=== PATIENT | male | born 1985 | race Caucasian/White ===

== ENCOUNTER 2017-04-13 06:04 | Emergency (ER) | payer SELFPAY ==
[~2017-04-13] VITALS: Ht 182.9 cm; Wt 91.9 kg
[2017-04-13] MEDS ORDERED: L.E.T SOLUTION TP ONE ×2 (06:58→07:00)
[2017-04-13] MEDS ORDERED: OXYcodone/APAP 5/325MG TABLET ONE (06:59)
[2017-04-13] MEDS ORDERED: OXYcodone/APAP 5/325MG TABLET PO ONE (07:00)
[2017-04-13 08:28] VITALS: BP 128/82
== END 2017-04-13 08:30 | disposition home or self-care (01) ==
LOC: ED 07:44
DX: S51.002A Unspecified open wound of left elbow, initial encounter (principal); S54.02XA Injury of ulnar nerve at forearm level, left arm, initial encounter; S50.812A Abrasion of left forearm, initial encounter; S40.022A Contusion of left upper arm, initial encounter; F12.10 Cannabis abuse, uncomplicated; V00.131A Fall from skateboard, initial encounter; Y93.51 Activity, roller skating (inline) and skateboarding; Y92.410 Unspecified street and highway as the place of occurrence of the external cause; Y99.8 Other external cause status

== ENCOUNTER 2017-05-08 19:49 | Emergency (ER) | payer SELFPAY ==
[~2017-05-08] VITALS: Ht 182.9 cm; Wt 89.0 kg
[2017-05-08 19:50] VITALS: BP 137/84
[2017-05-08] MEDS ORDERED: KETOROLAC 30 MG/1 ML ONE (20:29)
[2017-05-08] MEDS ORDERED: KETOROLAC 30 MG/1 ML IM ONE (20:30)
== END 2017-05-08 21:25 | disposition home or self-care (01) ==
LOC: ED 21:19
DX: S93.491A Sprain of other ligament of right ankle, initial encounter (principal); M25.471 Effusion, right ankle; M25.572 Pain in left ankle and joints of left foot; W18.39XA Other fall on same level, initial encounter; Y93.89 Activity, other specified; Y99.8 Other external cause status; Y92.830 Public park as the place of occurrence of the external cause
CPT/HCPCS: 73610; 96372; 99284; J1885

== ENCOUNTER 2017-10-02 15:54 | Emergency (ER) | payer SELFPAY ==
[~2017-10-02] VITALS: Ht 182.9 cm; Wt 99.2 kg
[2017-10-02 15:56] VITALS: BP 159/92
== END 2017-10-02 17:04 | disposition home or self-care (01) ==
LOC: ED 16:20
DX: K02.9 Dental caries, unspecified (principal)
CPT/HCPCS: 99283

== ENCOUNTER 2018-07-25 03:00 | Emergency (ER) | payer SELFPAY ==
[~2018-07-25] VITALS: Ht 182.9 cm; Wt 93.8 kg
[2018-07-25 03:02] VITALS: BP 130/88
[2018-07-25] MEDS ORDERED: METHOCARBAMOL 750 MG TABLET ONE (03:19)
[2018-07-25] MEDS ORDERED: KETOROLAC 30 MG/1 ML ONE (03:19)
[2018-07-25] MEDS ORDERED: METHOCARBAMOL 750 MG TABLET PO ONE (03:30)
[2018-07-25] MEDS ORDERED: KETOROLAC 30 MG/1 ML IM ONE (03:30)
== END 2018-07-25 04:14 | disposition home or self-care (01) ==
LOC: ED 04:10
DX: S20.211A Contusion of right front wall of thorax, initial encounter (principal); M62.830 Muscle spasm of back; V00.131A Fall from skateboard, initial encounter; Y93.89 Activity, other specified; Y99.8 Other external cause status; Y92.410 Unspecified street and highway as the place of occurrence of the external cause
CPT/HCPCS: 71101; 96372; 99284; J1885